=== PATIENT | male | born 1995 | race American Indian/Alaskan Native ===

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

== ENCOUNTER 2017-06-11 19:21 | Emergency (ER) | payer MEDICAID ==
[2017-06-11 19:32] VITALS: BP 121/79
--- NOTE | 2017-06-12 01:27 | Emergency Department Report ---
ED General Adult HPI - General Chief complaint: Wound/Laceration Stated complaint: LAC ON LEFT HAND Time Seen by Provider: 06/12/17 00:45 Source: patient, family, EMS Mode of arrival: Ambulatory Limitations: No Limitations - History of Present Illness Initial comments: Patient here. Laceration to right palm and forearm and also that he twisted his left ankle all this happened while he was playing basketball he said he fell on the pole this happened at 7 PM. He reports that his palm and forearm got injured while felling on the pole. Denies any numbness or tingling to the hand or forearm. Denies any restriction in movement. Denies any fever or chills. Patient reports pain 7 out of 10 to left ankle with swelling and 5 out of 10 to right palm. Tetanus vaccine is not up-to-date. Pain is worse with movement better with rest. No medication taken prior to coming to the hospital. Denies head injury, neck or back pain. MD Complaint: laceration to rightpalm, swelling to left ankle and bruising to RFA -: This evening Location: right (forearm and palm), upper extremity, lower extremity Radiation: non-radiation Severity scale (0 -10): 7 Quality: aching, dull, constant Improves with: immobilization, rest Worsens with: movement Associated Symptoms: rash, other (laceration and abrasion). denies: confusion, chest pain, cough, diaphoresis, fever/chills, headaches, loss of appetite, malaise, nausea/vomiting, seizure, shortness of breath, syncope, weakness Treatments Prior to Arrival: cold therapy - Related Data Previous Rx's Medication Instructions Recorded Last Taken Type Ibuprofen [Motrin 600 MG tab] 600 mg PO Q8H PRN #20 tablet 10/14/16 Unknown Rx Acetaminophen/Codeine [Tylenol 1 tab PO Q6H PRN #12 tab 06/12/17 Unknown Rx /Codeine # 3 tab] Cephalexin [Keflex] 500 mg PO Q8HR 10 Days #30 cap 06/12/17 Unknown Rx Ibuprofen [Motrin] 600 mg PO Q8H PRN #15 tablet 06/12/17 Unknown Rx Allergies Allergy/AdvReac Type Severity Reaction Status Date / Time No Known Allergies Allergy Verified 10/14/16 08:29 ED Review of Systems ROS: Stated complaint: LAC ON LEFT HAND Other details as noted in HPI Comment: All other systems reviewed and negative Constitutional: no symptoms reported Eyes: denies: vision change Respiratory: no symptoms reported Cardiovascular: denies: chest pain, palpitations, dyspnea on exertion, edema, syncope, paroxysmal nocturnal dyspnea Gastrointestinal: denies: abdominal pain, nausea, vomiting Genitourinary: denies: dysuria, hematuria Musculoskeletal: joint swelling, arthralgia. denies: back pain, myalgia Skin: other (laceration and abrasion to right forearm and hand/palmar) Neurological: abnormal gait (due to pain left ankle from injury). denies: headache, weakness, numbness, paresthesias, confusion, vertigo ED Past Medical Hx - Past Medical History Previous Medical History?: Yes Hx Asthma: Yes - Surgical History Past Surgical History?: Yes Additional Surgical History: right ankle - Family History Family history: no significant - Social History Smoking Status: Never Smoker Substance Use Type: None - Medications Home Medications: Home Medications Medication Instructions Recorded Confirmed Last Taken Type Ibuprofen [Motrin 600 MG tab] 600 mg PO Q8H PRN #20 tablet 10/14/16 Unknown Rx Acetaminophen/Codeine [Tylenol 1 tab PO Q6H PRN #12 tab 06/12/17 Unknown Rx /Codeine # 3 tab] Cephalexin [Keflex] 500 mg PO Q8HR 10 Days #30 cap 06/12/17 Unknown Rx Ibuprofen [Motrin] 600 mg PO Q8H PRN #15 tablet 06/12/17 Unknown Rx ED Physical Exam - General Limitations: No Limitations General appearance: alert, in no apparent distress - Head Head exam: Present: atraumatic, normocephalic, normal inspection, other (normal exam) - Eye Eye exam: Present: normal appearance, PERRL, EOMI. Absent: scleral icterus, conjunctival injection, nystagmus, periorbital swelling, periorbital tenderness Pupils: Present: normal accommodation - ENT ENT exam: Present: normal exam, normal orophraynx, mucous membranes moist - Neck Neck exam: Present: normal inspection, full ROM, other (no C-spine tenderness). Absent: tenderness, meningismus, lymphadenopathy, thyromegaly - Respiratory Respiratory exam: Present: normal lung sounds bilaterally. Absent: respiratory distress, chest wall tenderness, accessory muscle use - Cardiovascular Cardiovascular Exam: Present: regular rate, normal rhythm, normal heart sounds. Absent: systolic murmur, diastolic murmur - GI/Abdominal GI/Abdominal exam: Present: soft, normal bowel sounds. Absent: distended, tenderness, guarding, rebound, rigid, organomegaly, mass, bruit, pulsatile mass , hernia - Extremities Exam Extremities exam: Present: tenderness, normal capillary refill, joint swelling. Absent: normal inspection, full ROM, pedal edema, calf tenderness - Expanded Upper Extremity Exam Right General: Present: laceration. Absent: normal inspection, abrasion, nail injury (#), foreign body, amputation, avulsion Shoulder Exam: Present: normal inspection, full ROM. Absent: tenderness, swelling, abrasion, laceration, ecchymosis, deformity, crepidus, dislocation, erythema, tenderness over AC joint Upper Arm exam: Present: normal inspection, full ROM Elbow exam: Present: normal inspection, full ROM. Absent: tenderness, swelling , abrasion, laceration, ecchymosis, deformity, crepidus, dislocation, erythema, effusion, pain w/ pronation/supination, tenderness over radial head Forearm Wrist exam: Present: normal inspection, full ROM. Absent: tenderness, swelling, abrasion, laceration, ecchymosis, deformity, crepidus, dislocation, erythema, tenderness over anatomical snuff box, pain with axial thumb loading Hand Wrist exam: Present: full ROM, tenderness, swelling, laceration. Absent: normal inspection, abrasion, ecchymosis, deformity, crepidus, dislocation, erythema, amputation, nail avulsion, subungual hematoma Neuro motor exam: Present: wrist extension intact, thumb opposition intact, thumb IP flexion intact, thumb adduction intact, fingers 2-5 abduction intact Neurosensory exam: Present: 2-point discrimination, radial nerve intact, ulnar nerve intact, median nerve intact Vascular: Present: normal capillary refill, radial pulse, brachial pulse, ulnar pulse. Absent: vascular compromise, Pallo, pulse deficit radial art, pulse deficit ulnar art, pulse deficit brachial art - Expanded Lower Extremity Exam Left Hip exam: Present: normal inspection, full ROM, pelvic stability. Absent: tenderness, swelling, abrasion, laceration, ecchymosis, deformity, crepidus, dislocation, erythema, external rotation, internal rotation, shortening Upper Leg exam: Present: normal inspection, full ROM. Absent: tenderness, swelling, abrasion, laceration, ecchymosis, deformity, crepidus, dislocation, erythema Knee exam: Present: normal inspection, full ROM, full knee extension. Absent: tenderness, swelling, abrasion, laceration, ecchymosis, deformity, crepidus, dislocation, erythema, effusion, pain w/ pronation/supination, posterior draw sign, pain/laxity with valgus, pain/laxity with varus Lower Leg exam: Present: normal inspection, full ROM. Absent: tenderness, swelling, abrasion, laceration, ecchymosis, deformity, crepidus, dislocation, erythema, palpable cord, Kisha's sign Ankle exam: Present: tenderness, swelling. Absent: normal inspection, full ROM , abrasion, laceration, ecchymosis, deformity, crepidus, dislocation, erythema Foot/Toe exam: Present: normal inspection, full ROM. Absent: tenderness, swelling, abrasion, laceration, ecchymosis, deformity, crepidus, dislocation, erythema, amputation, puncture wound, calcaneal tenderness, tenderness at base of 5th metatarsal, nail avulsion, subungual hematoma Neuro vascular tendon exam: Present: significant pain with passive ROM of distal joint. Absent: no vascular compromise, pulse deficit, abnormal cap refill, motor deficit, sensory deficit, tendon deficit, extremity cold to touch , pallor, abnormal 2-point discrimination, decreased fine/light touch, foot drop , peroneal nerve deficit Gait: Positive: antalgic - Back Exam Back exam: Present: normal inspection, full ROM. Absent: tenderness, CVA tenderness (R), CVA tenderness (L), muscle spasm, paraspinal tenderness, vertebral tenderness, rash noted - Neurological Exam Neurological exam: Present: alert, oriented X3, abnormal gait (abnormal gait due to injury from falling to the left lower extremity.), reflexes normal - Psychiatric Psychiatric exam: Present: normal affect, normal mood - Skin Skin exam: Present: warm, dry, normal color, abrasion (abrasion right forearm), other (laceration 2 cm to right palm linear subcutaneous layer, positive bleeding). Absent: erythema, urticaria, pallor - Expanded Skin Exam Expanded Type of lesion: Present: laceration (right Palm), abrasion (right forearm) Distribution of rash: RUE (right palm laceration and right forearm abrasion) Description of rash: Present: size (2 cm), tenderness, swelling, other ( abrasion right forearm). Absent: erythematous, vesicular, blisters ED Course Vital Signs 06/11/17 06/12/17 19:30 04:45 Temperature 98 F Pulse Rate 67 66 Respiratory 18 16 Rate Blood Pressure 121/79 O2 Sat by Pulse 98 97 Oximetry - Reevaluation(s) Reevaluation #1: 06/12/17 04:16 Patient was given hydrocodone 5/325 2 tablets by mouth in emergency room for pain. He was started on Keflex 500 mg by mouth 1 dose in emergency room by mouth tetanus vaccine given, blistered 0.5 mL IM 1. Please refer to procedure note for laceration repair. Wound care down to abrasion site to right forearm. Irritant fluid iodine followed by normal saline and Neosporin ointment applied followed by sterile nonadhesive gauze dressing. - Laceration /Wound Repair Right Palm Hand Wound Location: upper extremity (right Palm proximally) Wound's Depth, Shape: into muscle, linear Wound Explored: clean Irrigated w/ Saline (ccs): 400 Betadine Prep?: Yes Anesthesia: 0.5% Sensorcaine (Marcaine) Volume Anesthetic (ccs): 5 Wound Debrided: moderate Wound Repaired With: sutures Suture Size/Type: 5:0 (Ethilon) Number of Sutures: 8 Layer Closure?: Yes Deep Layer Suture Size/Type: 5:0, gut Number Deep Layer Sutures: 3 Sterile Dressing Applied?: Yes Progress: Patient with sterile bulky dressing placed to right hand. He has good color, sensation, movement and temperature to right hand. Pulses are 2+ and bounding. - Orthopedic Splinting/Casting Injury #1 Side: left Lower Extremity Injury Location: ankle Lower Extremity Immobilizer: stirrup splint Other Orthopedic Equipment: crutches Additional Comments: Patient with good color, sensation, temperature movement to both feet. Status post ankle stirrup pedal pulses to the left foot is a 2+ and bounding. ED Medical Decision Making - Radiology Data Radiology results: report reviewed X-ray three-view right hand reveal no acute fractures or dislocation. No foreign body seen. X-ray of left ankle reveals soft tissue swelling without any acute fracture or dislocation - Medical Decision Making ED course: Pt is status post injury with laceration to right palm and injury to left ankle. X-ray of right hand reveal no acute fracture or dislocation. No foreign body seen. X-ray of left ankle reveals soft tissue swelling without any fracture or dislocation. Patient was given Hixson 5/325 2 tablets in emergency room to control pain. Tetanus vaccine updated. Boostrix 0.5 mls IM. He was also given Keflex 500 mg 1 dose in emergency room empirically for infection. Please refer to procedure note for laceration repair and also splinted. Patient with left ankle sprain and laceration to right palm. Patient discharged home a prescription for Keflex, Tylenol 3 and Motrin and to follow up with his primary care in 2-3 days and also to follow-up back to the emergency room in 7-10 days for suture removal. He voiced understanding and discharged home with family in stable condition Critical care attestation.: If time is entered above; I have spent that time in minutes in the direct care of this critically ill patient, excluding procedure time. ED Disposition Clinical Impression: Fall from ground level, Arthralgia of multiple sites, bilateral Abrasion of right forearm Qualifiers: Encounter type: initial encounter Qualified Code(s): S50.811A - Abrasion of right forearm, initial encounter Moderate left ankle sprain Qualifiers: Encounter type: initial encounter Qualified Code(s): S93.402A - Sprain of unspecified ligament of left ankle, initial encounter Laceration of right palm without complication Qualifiers: Encounter type: initial encounter Qualified Code(s): S61.411A - Laceration without foreign body of right hand, initial encounter Disposition: - TO HOME OR SELFCARE Is pt being admited?: No Does the pt Need Aspirin: No Condition: Stable Instructions: Ankle Sprain (ED), Suture Care (ED), Crutch Instructions (ED), Laceration (ED), Ankle Stirrup Splint (ED), Abrasion (ED), Musculoskeletal Pain (ED), RICE Therapy (ED), Absorbable Suture Care (ED) Additional Instructions: Please follow up with primary care as recommended and if he do not have a primary care physician follow-up with outside Medical Center in 2 days. Increase fluid intake Take medication as prescribed . please do not drive or operate heavy machinery while taking these medications Tylenol 3 as this medication causes drowsiness. Referred to discharge instruction on splint care. Referred to discharge instruction in Rice therapy. follow-up with orthopedic doctor as instructed. Please return to emergency room in 7-10 days to have stitches removed. Please keep affected area clean and dry If you notice, increasing redness, drainage, developed fever and/or chills, worsening pain, restriction in movement of right hand , please return to emergency room ANJALI. Prescriptions: Acetaminophen/Codeine [Tylenol /Codeine # 3 tab] 1 tab PO Q6H PRN #12 tab PRN Reason: Pain, Moderate (4-6) Cephalexin [Keflex] 500 mg PO Q8HR 10 Days #30 cap Ibuprofen [Motrin] 600 mg PO Q8H PRN #15 tablet PRN Reason: Pain Referrals: PRIMARY CAREMD [Primary Care Provider] - 06/14/17 [facility] [Outside] - 06/14/17 LEILA RODRIGUES MD [Staff Physician] - 06/14/17 Forms: Work/School Release Form(ED)
[2017-06-12] MEDS ORDERED: NACL 0.9% IR ONE (01:29)
[2017-06-12] MEDS ORDERED: BOOSTRIX IM ONE (01:29)
[2017-06-12] MEDS ORDERED: KEFLEX PO ONE (01:29)
[2017-06-12] MEDS ORDERED: NORCO 5/325 PO ONE (01:29)
[2017-06-12] MEDS ORDERED: MARCAINE 0.5% INFILTRATI ONE (01:29)
--- NOTE | 2017-06-12 02:35 | XRay Report ---
FINAL REPORT PROCEDURE: XR HAND 3+V RT TECHNIQUE: RIGHT hand radiographs, AP, lateral, and oblique views. CPT 04108-XZ HISTORY: laceration with swelling/pain COMPARISON: No prior studies are available for comparison. FINDINGS: Fracture (s) and/or Dislocation(s): None . Alignment: Normal . Joint space(s): Normal . Soft tissues: Normal . Bone mineralization: Normal . Foreign bodies: None . IMPRESSION: Normal Examination .
--- NOTE | 2017-06-12 02:43 | XRay Report ---
FINAL REPORT PROCEDURE: XR ANKLE 3+V LT TECHNIQUE: LEFT ankle radiographs, AP, lateral, and oblique views. CPT 09853 HISTORY: sports injury with left ankle pain and swelling COMPARISON: No prior studies are available for comparison. FINDINGS: Fracture (s) and/or Dislocation(s): None. Alignment: Normal. Joint space(s): Normal. Soft tissues: There is lateral soft tissue swelling.. Bone mineralization: Normal. Foreign bodies: None. Calcaneal spurring: None. IMPRESSION: There is no fracture or malalignment. There is lateral soft tissue swelling..
== END 2017-06-12 04:45 | disposition home or self-care (01) ==
LOC: ED 19:21
DX: S61.411A Laceration without foreign body of right hand, initial encounter (principal); S93.402A Sprain of unspecified ligament of left ankle, initial encounter; S50.811A Abrasion of right forearm, initial encounter; W18.39XA Other fall on same level, initial encounter; Y93.67 Activity, basketball; Y92.89 Other specified places as the place of occurrence of the external cause; Y99.8 Other external cause status
CPT/HCPCS: 90471; 90715

== ENCOUNTER 2017-06-19 10:10 | Emergency (ER) | payer MEDICAID, OTHER ==
[2017-06-19 10:21] VITALS: BP 141/80
--- NOTE | 2017-06-19 11:20 | Emergency Department Report ---
Suture/Staple Removal - [facility] Chief Complaint: Laceration/Recheck/Suture Stated Complaint: SUTURE REMOVAL Time Seen by Provider: 06/19/17 10:43 When Sutures or Neymar Placed: 8-10 Days Ago Wound Location: right palm ED Review of Systems ROS: Stated complaint: SUTURE REMOVAL Other details as noted in HPI Constitutional: denies: chills, fever Eyes: denies: eye pain, eye discharge, vision change ENT: denies: ear pain, throat pain Respiratory: denies: cough, shortness of breath, wheezing Cardiovascular: denies: chest pain, palpitations Endocrine: no symptoms reported Gastrointestinal: denies: abdominal pain, nausea, diarrhea Genitourinary: denies: urgency, dysuria Musculoskeletal: denies: back pain, joint swelling, arthralgia Skin: denies: rash, lesions Neurological: denies: headache, weakness, paresthesias Psychiatric: denies: anxiety, depression Hematological/Lymphatic: denies: easy bleeding, easy bruising ED Past Medical Hx - Past Medical History Hx Asthma: Yes - Surgical History Additional Surgical History: right ankle - Social History Smoking Status: Never Smoker Substance Use Type: None - Medications Home Medications: Home Medications Medication Instructions Recorded Confirmed Last Taken Type Ibuprofen [Motrin 600 MG tab] 600 mg PO Q8H PRN #20 tablet 10/14/16 Unknown Rx Acetaminophen/Codeine [Tylenol 1 tab PO Q6H PRN #12 tab 06/12/17 Unknown Rx /Codeine # 3 tab] Cephalexin [Keflex] 500 mg PO Q8HR 10 Days #30 cap 06/12/17 Unknown Rx Ibuprofen [Motrin] 600 mg PO Q8H PRN #15 tablet 06/12/17 Unknown Rx Suture Removal Exam - Exam General: Vital signs noted. No distress. Alert and acting appropriately. Wound: No Pathologic Erythema, No Tenderness, No Drainage, No Pus, No Wound Dehiscence Other Systems: All other systems reviewed and are unremarkable. ED Course Vital Signs 06/19/17 10:19 Temperature 99.1 F Pulse Rate 76 Respiratory 18 Rate Blood Pressure 141/80 O2 Sat by Pulse 100 Oximetry ED Recheck MDM - Medical Decision Making 21-year-old female presents with suture removal of the right palm ED course: wound cleaned and alcohol, continuous black sutures removed. Patient tolerated procedure well Discuss acute wound care with patient Discussed keeping wound Vital signs are normal patient in no acute distress. Critical care attestation.: If time is entered above; I have spent that time in minutes in the direct care of this critically ill patient, excluding procedure time. ED Disposition Clinical Impression: Encounter for removal of sutures Disposition: - TO HOME OR SELFCARE Is pt being admited?: No Does the pt Need Aspirin: No Condition: Stable Instructions: Acute Wound Care (ED) Additional Instructions: Make sure to follow up with the primary care physician as discussed. Take all your medications as you've been prescribed. If you have any worsening symptoms or develop new symptoms please return to ED immediately. Referrals: PRIMARY CARE, [Primary Care Provider] - 3-5 Days Forms: Work/School Release Form(ED) Time of Disposition: 11:21
== END 2017-06-19 11:26 | disposition home or self-care (01) ==
LOC: ED 10:10
DX: S61.411D Laceration without foreign body of right hand, subsequent encounter (principal); J45.909 Unspecified asthma, uncomplicated; W45.8XXD Other foreign body or object entering through skin, subsequent encounter